=== PATIENT | female | born 1965 | race American Indian/Alaskan Native ===

== ENCOUNTER 2017-07-27 21:35 | Emergency (ER) | payer MEDICAID, OTHER ==
[2017-07-27 21:43] VITALS: BP 146/72
--- NOTE | 2017-07-27 21:54 | EDM.PDOC ---
ED HPI GENERAL MEDICAL PROBLEM - General Chief Complaint: Upper Extremity Injury/Pain Stated Complaint: BY AMBULANCE, INTOXICATION Time Seen by Provider: 07/27/17 21:38 Source of Information: Reports: Patient History Limitations: Reports: Intoxication - History of Present Illness INITIAL COMMENTS - FREE TEXT/NARRATIVE: This 52 yo female patient was brought to the ED by [facility] due to right shoulder pain. [facility] reports they found the patient wandering in the ditch complaining of right shoulder pain. The patient admits to drinking ETOH. The patient reports she was seen in the clinic today, but the provider did not do anything. The patient reports she had surgery on the shoulder 1 month ago and has been experiencing increased pain in her shoulder since that time. The patient reports she has not taken any pain medications at this time, but was drinking ETOH to reduce her pain. The patient reports she did get some insulin this afternoon. The patient denies any drug use. The patient reports she has not contacted the person that did surgery on her. Duration: Week(s):, Constant Location: Reports: Upper Extremity, Right Quality: Reports: Ache, Sharp Severity: Moderate Improves with: Reports: None Worsens with: Reports: None Associated Symptoms: Reports: No Other Symptoms Right Shoulder Pain Score (Numeric/FACES): 9 - Related Data Allergies Allergy/AdvReac Type Severity Reaction Status Date / Time hydrocodone Allergy Rash Verified 07/27/17 21:40 Home Meds: Home Meds Aspirin 81 mg PO BRK 03/17/16 [History] Insulin Aspart [NovoLOG] 100 unit SUBCUT BIDAC 03/17/16 [History] Insulin Detemir [Levemir] 25 unit SUBCUT BEDTIME 03/17/16 [History] Lisinopril 20 mg PO DAILY 03/17/16 [History] Simvastatin [Zocor] 20 mg PO BEDTIME 03/17/16 [History] Past Medical History Cardiovascular History: Reports: Hypertension Endocrine/Metabolic History: Reports: Diabetes, Type II - Past Surgical History Neurological Surgical History: Reports: Other (See Below) Musculoskeletal Surgical History: Reports: Knee Replacement Social & Family History - Family History Family Medical History: Noncontributory - Tobacco Use Smoking Status *Q: Current Every Day Smoker Years of Tobacco use: 40 Packs/Tins Daily: 1 - Recreational Drug Use Recreational Drug Use: No Review of Systems - Review of Systems Review Of Systems: ROS reveals no pertinent complaints other than HPI. ED EXAM, GENERAL - Physical Exam Exam: See Below Exam Limited By: Intoxication General Appearance: Alert, WD/WN, Moderate Distress, Obese Eye Exam: Bilateral Eye: EOMI, Normal Inspection, PERRL Ears: Normal External Exam, Normal Canal, Hearing Grossly Normal, Normal TMs Nose: Normal Inspection, Normal Mucosa, No Blood Throat/Mouth: Normal Inspection, Normal Lips, Normal Teeth, Normal Gums, Normal Oropharynx, Normal Voice, No Airway Compromise Head: Atraumatic, Normocephalic Neck: Normal Inspection, Supple, Non-Tender, Full Range of Motion Respiratory/Chest: No Respiratory Distress, Lungs Clear, Normal Breath Sounds, No Accessory Muscle Use, Chest Non-Tender Cardiovascular: Normal Peripheral Pulses, Regular Rate, Rhythm, No Edema, No Gallop, No JVD, No Murmur, No Rub GI/Abdominal: Normal Bowel Sounds, Soft, Non-Tender, No Organomegaly, No Distention, No Abnormal Bruit, No Mass (Female) Exam: Deferred Rectal (Female) Exam: Deferred Back Exam: Normal Inspection, Full Range of Motion, NT Extremities: Other (The patient has abrasions on her knees from falling. The patient reports anterior shoulder pain with palpation. ) Neurological: Alert, Oriented, CN II-XII Intact, Normal Cognition, Normal Gait, Normal Reflexes, No Motor/Sensory Deficits Psychiatric: Normal Affect, Normal Mood Skin Exam: Warm, Dry, Intact, Normal Color, No Rash Lymphatic: No Adenopathy Course - Vital Signs Last Recorded V/S: Last Vital Signs Temp 36.6 C 07/27/17 21:41 Pulse 83 07/27/17 21:41 Resp 20 07/27/17 21:41 BP 146/72 H 07/27/17 21:41 Pulse Ox 100 07/27/17 21:41 - Orders/Labs/Meds Labs: Laboratory Tests 07/27/17 07/27/17 07/27/17 Range/Units 21:50 21:50 22:01 WBC 9.3 (5.0-10.0) 10^3/uL RBC 5.03 (4.2-5.4) 10^6/uL Hgb 15.2 (12.0-16.0) g/dL Hct 44.9 (37.0-47.0) % MCV 89.3 (80-100) fL MCH 30.2 (27.0-34.0) pg MCHC 33.9 (33.0-35.0) g/dL Plt Count 217 (150-450) 10^3/uL Neut % (Auto) 92.4 H (42.2-75.2) % Lymph % (Auto) 6.5 L (20.5-50.1) % [place] % (Auto) 0.6 L (2-8) % Eos % (Auto) 0.0 L (1.0-3.0) % Baso % (Auto) 0.5 (0.0-1.0) % Sodium 137 (135-145) mmol/L Potassium 4.1 (3.6-5.0) mmol/L Chloride 103 (101-111) mmol/L Carbon Dioxide 17.0 L (21.0-31.0) mmol/L Anion Gap 21.1 BUN 15 (7-18) mg/dL Creatinine 0.6 (0.6-1.3) mg/dL Est Cr Clr Drug Dosing TNP Estimated GFR (MDRD) > 60 BUN/Creatinine Ratio 25.00 Glucose 430 H* (74-105) mg/dL Calcium 9.4 (8.4-10.2) mg/dl Magnesium 2.0 (1.8-2.5) mg/dL Total Bilirubin 0.7 (0.2-1.0) mg/dL AST 74 H (10-42) IU/L ALT 140 H (10-60) IU/L Alkaline Phosphatase 125 H (42-121) IU/L Total Protein 8.5 H (6.7-8.2) g/dl Albumin 4.4 (3.2-5.5) g/dl Globulin 4.1 Albumin/Globulin Ratio 1.07 Urine Color (YELLOW) Urine Appearance (CLEAR) Urine pH (5.0-9.0) Ur Specific [place] (1.005-1.030) Urine Protein (NEGATIVE) Urine Glucose (UA) (NEGATIVE) Urine Ketones (NEGATIVE) Urine Occult Blood (NEGATIVE) Urine Nitrite (NEGATIVE) Urine Bilirubin (NEGATIVE) Urine Urobilinogen (0.2-1.0) mg/dL Ur Leukocyte Esterase (NEGATIVE) Urine RBC /HPF Urine WBC (0-5/HPF) /HPF Ur Epithelial Cells /HPF Urine Bacteria (0-FEW/HPF) /HPF Urine HCG, Qual Salicylates < 4 Urine Opiates Screen Negative (NEGATIVE) Ur Oxycodone Screen Negative (NEGATIVE) Urine Methadone Screen Negative (NEGATIVE) Acetaminophen < 10 Ur Barbiturates Screen Negative (NEGATIVE) U Tricyclic Antidepress Negative (NEGATIVE) Ur Phencyclidine Scrn Negative (NEGATIVE) Ur Amphetamine Screen Negative (NEGATIVE) U Methamphetamines Scrn Negative (NEGATIVE) Urine MDMA Screen Negative (NEGATIVE) U Benzodiazepines Scrn Negative (NEGATIVE) Urine Cocaine Screen Negative (NEGATIVE) U Marijuana (THC) Screen Negative (NEGATIVE) Ethyl Alcohol 171 mg/dL 07/27/17 07/27/17 Range/Units 22:01 22:01 WBC (5.0-10.0) 10^3/uL RBC (4.2-5.4) 10^6/uL Hgb (12.0-16.0) g/dL Hct (37.0-47.0) % MCV (80-100) fL MCH (27.0-34.0) pg MCHC (33.0-35.0) g/dL Plt Count (150-450) 10^3/uL Neut % (Auto) (42.2-75.2) % Lymph % (Auto) (20.5-50.1) % [place] % (Auto) (2-8) % Eos % (Auto) (1.0-3.0) % Baso % (Auto) (0.0-1.0) % Sodium (135-145) mmol/L Potassium (3.6-5.0) mmol/L Chloride (101-111) mmol/L Carbon Dioxide (21.0-31.0) mmol/L Anion Gap BUN (7-18) mg/dL Creatinine (0.6-1.3) mg/dL Est Cr Clr Drug Dosing Estimated GFR (MDRD) BUN/Creatinine Ratio Glucose (74-105) mg/dL Calcium (8.4-10.2) mg/dl Magnesium (1.8-2.5) mg/dL Total Bilirubin (0.2-1.0) mg/dL AST (10-42) IU/L ALT (10-60) IU/L Alkaline Phosphatase (42-121) IU/L Total Protein (6.7-8.2) g/dl Albumin (3.2-5.5) g/dl Globulin Albumin/Globulin Ratio Urine Color Light yellow (YELLOW) Urine Appearance Slightly cloudy (CLEAR) Urine pH 5.5 (5.0-9.0) Ur Specific [place] <= 1.005 (1.005-1.030) Urine Protein Negative (NEGATIVE) Urine Glucose (UA) 500 H (NEGATIVE) Urine Ketones Negative (NEGATIVE) Urine Occult Blood Negative (NEGATIVE) Urine Nitrite Negative (NEGATIVE) Urine Bilirubin Negative (NEGATIVE) Urine Urobilinogen 0.2 (0.2-1.0) mg/dL Ur Leukocyte Esterase Negative (NEGATIVE) Urine RBC 0-5 /HPF Urine WBC 0-5 (0-5/HPF) /HPF Ur Epithelial Cells Few /HPF Urine Bacteria Few (0-FEW/HPF) /HPF Urine HCG, Qual Negative Salicylates Urine Opiates Screen (NEGATIVE) Ur Oxycodone Screen (NEGATIVE) Urine Methadone Screen (NEGATIVE) Acetaminophen Ur Barbiturates Screen (NEGATIVE) U Tricyclic Antidepress (NEGATIVE) Ur Phencyclidine Scrn (NEGATIVE) Ur Amphetamine Screen (NEGATIVE) U Methamphetamines Scrn (NEGATIVE) Urine MDMA Screen (NEGATIVE) U Benzodiazepines Scrn (NEGATIVE) Urine Cocaine Screen (NEGATIVE) U Marijuana (THC) Screen (NEGATIVE) Ethyl Alcohol mg/dL Meds: Medications Discontinued Medications Generic Name Dose Route Start Last Admin Trade Name Yarelis PRN Reason Stop Dose Admin Folic Acid Confirm 07/27/17 22:24 07/27/17 22:33 Folic Acid Administered 07/27/17 22:25 Not Given Dose 50 mg .ROUTE .STK-MED ONE Multivitamins/Minerals 10 ml/ 1,011.2 mls @ 999 mls/hr 07/27/17 22:20 22:32 Thiamine HCl 100 mg/ Folic IV 07/27/17 23:20 999 mls/hr Acid 1 mg/ Lactated Ringer's .BOLUS ONE Administration Ketorolac Tromethamine 30 mg 07/27/17 22:31 07/27/17 22:36 Toradol IVPUSH 07/27/17 22:32 30 mg ONETIME ONE Administration Multivitamins/Minerals Confirm 07/27/17 22:24 07/27/17 22:33 Infuvite Adult Administered 07/27/17 22:25 Not Given Dose 10 ml IV .STK-MED ONE Thiamine HCl Confirm 07/27/17 22:24 07/27/17 22:33 Vitamin B-1 Administered 07/27/17 22:25 Not Given Dose 200 mg .ROUTE .STK-MED ONE Departure - Departure Time of Disposition: 23:35 Disposition: Eloped 07 Condition: Fair Clinical Impression: Right shoulder pain Qualifiers: Chronicity: chronic Qualified Code(s): M25.511 - Pain in right shoulder - Discharge Information Instructions: Shoulder Pain, [id number] Forms: ED Department Discharge Care Plan Goals: While attempting to make arrangements for transportation, the patient left prior to discharge.
[2017-07-27 22:18] LABS: CHLORIDE,CL 103 mmol/L (101-111); SODIUM,NA 137 mmol/L (135-145)
[2017-07-27 22:20] LABS: ACETAMINOPHEN < 10
[2017-07-27] MEDS ORDERED: MVI, Adult with Vitamin K 10 ML, Thiamine 100 MG, Folic Acid 1 MG in Lactated Ringers 1... IV ONE ×4 (22:20)
[2017-07-27] MEDS ORDERED: Thiamine 200 MG/2 ML MDV ONE (22:24)
[2017-07-27] MEDS ORDERED: MVI, Adult with Vitamin K 10 ML SDV IV ONE (22:24)
[2017-07-27] MEDS ORDERED: Folic Acid 50 MG/10 ML MDV ONE (22:24)
[2017-07-27] MEDS ORDERED: Ketorolac 30 MG/ML SDV IVPUSH ONE (22:31)
== END 2017-07-27 23:30 | disposition left against medical advice (07) ==
LOC: DL.ED 21:35
DX: M25.511 Pain in right shoulder (principal); F17.210 Nicotine dependence, cigarettes, uncomplicated; E11.9 Type 2 diabetes mellitus without complications; I10 Essential (primary) hypertension; Z96.659 Presence of unspecified artificial knee joint; Z88.5 Allergy status to narcotic agent; Z79.82 Long term (current) use of aspirin; Z79.4 Long term (current) use of insulin; Z79.899 Other long term (current) drug therapy
CPT/HCPCS: 36415; 73030; 80053; 80305; 81001; 81025; 83735; 85025; 96360; 99283; G0480; J1885; J3411; J7120; J3490

== ENCOUNTER 2017-07-29 10:47 | Emergency (ER) | payer MEDICAID, OTHER ==
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
[2017-07-29] MEDS ORDERED: Sodium Chloride 0.9% 10 ML Syringe FLUSH PRN (10:59)
[2017-07-29] MEDS ORDERED: Ketorolac 30 MG/ML SDV IVPUSH ONE (11:14)
[2017-07-29 11:38] LABS: CHLORIDE,CL 100 mmol/L (101-111); SODIUM,NA 137 mmol/L (135-145)
[2017-07-29 12:41] VITALS: BP 154/75
[2017-07-29] MEDS ORDERED: fentaNYL 100 MCG/2 ML SDV IVPUSH ONE (13:53)
== END 2017-07-29 14:10 ==
LOC: DL.ED 10:47
DX: S72.141A Displaced intertrochanteric fracture of right femur, initial encounter for closed fracture (principal); I10 Essential (primary) hypertension; E11.9 Type 2 diabetes mellitus without complications; F17.210 Nicotine dependence, cigarettes, uncomplicated; Z96.659 Presence of unspecified artificial knee joint; Z79.4 Long term (current) use of insulin; Z79.82 Long term (current) use of aspirin; Z79.899 Other long term (current) drug therapy; Z88.5 Allergy status to narcotic agent; X58.XXXA Exposure to other specified factors, initial encounter
CPT/HCPCS: 36415; 70450; 72125; 72192; 80053; 80305; 81001; 82550; 82553; 82962; 85025; 96374; 96375; 99285; G0480; J1885; J3010; J7050

== ENCOUNTER 2019-05-01 00:25 | Emergency (ER) | payer MEDICAID, OTHER ==
--- NOTE | 2019-05-01 01:06 | EDM.PDOC ---
ED HPI GENERAL MEDICAL PROBLEM - General Chief Complaint: General Stated Complaint: AMBULANCE-UNKNOWN Time Seen by Provider: 05/01/19 00:35 Source of Information: Reports: Patient, EMS History Limitations: Reports: No Limitations - History of Present Illness INITIAL COMMENTS - FREE TEXT/NARRATIVE: ED with c/o burning with urination and "passing blood" in urine for one week. Noted burning and frequency to be worse tonight. Chronic low back and hip pain unchanged. States taking 3 aleve 2-3 times daily for pain. No vomiting or diarrhea, has not noticed any blood in stool . Spouse reported eating and drinking well today. Has felt like had fever at times over past 3 days. IDDM with blood sugars 300-400. Smoker. IV tracks noted, patient admits to meth use less than weekly, last use 3-4 days prior. Abdomen Pain Score (Numeric/FACES): 10 Right Hip Pain Score (Numeric/FACES): 8 Back Pain Score (Numeric/FACES): 8 - Related Data Allergies Allergy/AdvReac Type Severity Reaction Status Date / Time hydrocodone Allergy Rash Verified 05/01/19 00:59 Home Meds: Home Meds Aspirin 81 mg PO BRK 03/17/16 [History] Insulin Aspart [NovoLOG] 100 unit SUBCUT BIDAC 03/17/16 [History] Insulin Detemir [Levemir] 25 unit SUBCUT BEDTIME 03/17/16 [History] Lisinopril 20 mg PO DAILY 03/17/16 [History] Simvastatin [Zocor] 20 mg PO BEDTIME 03/17/16 [History] Naproxen Sodium [Aleve] 220 mg PO TID PRN 05/01/19 [History] Past Medical History Cardiovascular History: Reports: Hypertension Gastrointestinal History: Reports: Other (See Below) Other Gastrointestinal History: enlarged liver, elevalted enzymes Genitourinary History: Reports: Urinary Incontinence AIRPORT GUIDE History: Reports: Psychiatric History: Reports: Addiction Endocrine/Metabolic History: Reports: Diabetes, Type II - Past Surgical History Neurological Surgical History: Reports: Other (See Below) Musculoskeletal Surgical History: Reports: Knee Replacement Other Musculoskeletal Surgeries/Procedures:: Right hip surgery Social & Family History - Family History Family Medical History: Noncontributory - Tobacco Use Smoking Status *Q: Current Every Day Smoker Years of Tobacco use: 39 Packs/Tins Daily: 10 - Caffeine Use Caffeine Use: Reports: Coffee, Soda - Recreational Drug Use Recreational Drug Use: Yes Recreational Drug Type: Reports: Methamphetamine Recreational Drug Use Frequency: Socially ED ROS GENERAL - Review of Systems Review Of Systems: See Below Constitutional: Reports: Fever HEENT: Reports: No Symptoms Respiratory: Reports: No Symptoms Cardiovascular: Reports: No Symptoms Endocrine: Reports: High Glucose GI/Abdominal: Reports: Abdominal Pain, Other (abdomen feels bloated, last BM yesterday or today). Denies: Black Stool, Bloody Stool, Diarrhea, Vomiting : Reports: Dysuria, Frequency, Hematuria, Pain (suproapubic), Urgency Musculoskeletal: Reports: Shoulder Pain (right remote fracture), Joint Pain ( right hip, remote fracture) ED EXAM, GENERAL - Physical Exam Exam: See Below Exam Limited By: No Limitations General Appearance: Alert, Mild Distress, Thin Eye Exam: Bilateral Eye: EOMI Ears: Normal External Exam, Hearing Grossly Normal Nose: Normal Inspection Throat/Mouth: Normal Lips, Normal Voice, No Airway Compromise. No: Normal Teeth (poor dentation) Head: Atraumatic, Normocephalic Neck: Normal Inspection, Full Range of Motion Respiratory/Chest: No Respiratory Distress, Lungs Clear, Normal Breath Sounds Cardiovascular: Normal Peripheral Pulses, Regular Rate, Rhythm, No Edema. No: JVD GI/Abdominal: Normal Bowel Sounds, Soft, Tender (suprapubic). No: Distended, Guarding Extremities: Other (right hip pain with minimal movment). No: Joint Swelling Neurological: Alert, Oriented Psychiatric: Flat Affect, Other (irritable) Skin Exam: Warm, Dry, Normal Color Course - Vital Signs Last Recorded V/S: Last Vital Signs Temp 98 F 05/01/19 02:58 Pulse 83 05/01/19 02:58 Resp 19 05/01/19 02:58 BP 126/59 L 05/01/19 02:58 Pulse Ox 98 05/01/19 02:58 - Orders/Labs/Meds Orders: Active Orders 24 hr Category Date Time Status CULTURE BLOOD [BC] Stat Lab 05/01/19 00:32 Received CULTURE BLOOD [BC] Stat Lab 05/01/19 01:00 Received CULTURE URINE [RM] Stat Lab 05/01/19 00:51 Received Blood Culture x2 Reflex Set [OM.PC] Stat Oth 05/01/19 00:32 Ordered Labs: Laboratory Tests 05/01/19 05/01/19 05/01/19 Range/Units 00:39 00:39 00:51 WBC 9.9 (5.0-10.0) 10^3/uL RBC 4.44 (4.2-5.4) 10^6/uL Hgb 13.0 D (12.0-16.0) g/dL Hct 38.0 (37.0-47.0) % MCV 85.6 (80-100) fL MCH 29.3 (27.0-34.0) pg MCHC 34.2 (33.0-35.0) g/dL Plt Count 159 (150-450) 10^3/uL Neut % (Auto) 58.2 (42.2-75.2) % Lymph % (Auto) 25.6 (20.5-50.1) % Carter % (Auto) 8.4 H (2-8) % Eos % (Auto) 6.9 H (1.0-3.0) % Baso % (Auto) 0.9 (0.0-1.0) % Sodium (135-145) mmol/L Potassium (3.6-5.0) mmol/L Chloride (101-111) mmol/L Carbon Dioxide (21.0-31.0) mmol/L Anion Gap BUN (7-18) mg/dL Creatinine (0.6-1.3) mg/dL Est Cr Clr Drug Dosing Estimated GFR (MDRD) BUN/Creatinine Ratio Glucose (74-105) mg/dL Lactic Acid 1.0 (0.5-2.2) mmol/L Calcium (8.4-10.2) mg/dl Magnesium (1.8-2.5) mg/dL Total Bilirubin (0.2-1.0) mg/dL AST (10-42) IU/L ALT (10-60) IU/L Alkaline Phosphatase (42-121) IU/L Total Protein (6.7-8.2) g/dl Albumin (3.2-5.5) g/dl Globulin Albumin/Globulin Ratio Amylase (28-100) U/L Lipase (22-51) U/L Urine Color Red (YELLOW) Urine Appearance Cloudy (CLEAR) Urine pH 5.5 (5.0-9.0) Ur Specific [place] 1.025 (1.005-1.030) Urine Protein >=300 H (NEGATIVE) Urine Glucose (UA) 100 H (NEGATIVE) Urine Ketones Trace H (NEGATIVE) Urine Occult Blood Large H (NEGATIVE) Urine Nitrite Positive H (NEGATIVE) Urine Bilirubin Moderate H (NEGATIVE) Urine Urobilinogen 1.0 (0.2-1.0) mg/dL Ur Leukocyte Esterase Small H (NEGATIVE) Urine RBC >100 H /HPF Urine WBC >100 H (0-5/HPF) /HPF Ur Epithelial Cells Few (NOT SEEN) /HPF Other Crystals (NOT SEEN) /HPF Amorphous Sediment Moderate H (NOT SEEN) /HPF Urine Bacteria Few (0-FEW/HPF) /HPF Urine Opiates Screen (NEGATIVE) Ur Oxycodone Screen (NEGATIVE) Urine Methadone Screen (NEGATIVE) Ur Barbiturates Screen (NEGATIVE) U Tricyclic Antidepress (NEGATIVE) Ur Phencyclidine Scrn (NEGATIVE) Ur Amphetamine Screen (NEGATIVE) U Methamphetamines Scrn (NEGATIVE) Urine MDMA Screen (NEGATIVE) U Benzodiazepines Scrn (NEGATIVE) Urine Cocaine Screen (NEGATIVE) U Marijuana (THC) Screen (NEGATIVE) Ketones 05/01/19 05/01/19 Range/Units 00:51 01:00 WBC (5.0-10.0) 10^3/uL RBC (4.2-5.4) 10^6/uL Hgb (12.0-16.0) g/dL Hct (37.0-47.0) % MCV (80-100) fL MCH (27.0-34.0) pg MCHC (33.0-35.0) g/dL Plt Count (150-450) 10^3/uL Neut % (Auto) (42.2-75.2) % Lymph % (Auto) (20.5-50.1) % Carter % (Auto) (2-8) % Eos % (Auto) (1.0-3.0) % Baso % (Auto) (0.0-1.0) % Sodium 139 (135-145) mmol/L Potassium 4.2 (3.6-5.0) mmol/L Chloride 107 (101-111) mmol/L Carbon Dioxide 22.0 (21.0-31.0) mmol/L Anion Gap 14.2 BUN 26 H (7-18) mg/dL Creatinine 0.7 (0.6-1.3) mg/dL Est Cr Clr Drug Dosing TNP Estimated GFR (MDRD) > 60 BUN/Creatinine Ratio 37.14 Glucose 160 H (74-105) mg/dL Lactic Acid (0.5-2.2) mmol/L Calcium 9.2 (8.4-10.2) mg/dl Magnesium 2.0 (1.8-2.5) mg/dL Total Bilirubin 0.6 (0.2-1.0) mg/dL AST 27 (10-42) IU/L ALT 46 (10-60) IU/L Alkaline Phosphatase 101 (42-121) IU/L Total Protein 7.2 (6.7-8.2) g/dl Albumin 3.7 (3.2-5.5) g/dl Globulin 3.5 Albumin/Globulin Ratio 1.06 Amylase 59 (28-100) U/L Lipase 53 H (22-51) U/L Urine Color (YELLOW) Urine Appearance (CLEAR) Urine pH (5.0-9.0) Ur Specific [place] (1.005-1.030) Urine Protein (NEGATIVE) Urine Glucose (UA) (NEGATIVE) Urine Ketones (NEGATIVE) Urine Occult Blood (NEGATIVE) Urine Nitrite (NEGATIVE) Urine Bilirubin (NEGATIVE) Urine Urobilinogen (0.2-1.0) mg/dL Ur Leukocyte Esterase (NEGATIVE) Urine RBC /HPF Urine WBC (0-5/HPF) /HPF Ur Epithelial Cells (NOT SEEN) /HPF Other Crystals (NOT SEEN) /HPF Amorphous Sediment (NOT SEEN) /HPF Urine Bacteria (0-FEW/HPF) /HPF Urine Opiates Screen Negative (NEGATIVE) Ur Oxycodone Screen Negative (NEGATIVE) Urine Methadone Screen Negative (NEGATIVE) Ur Barbiturates Screen Negative (NEGATIVE) U Tricyclic Antidepress Negative (NEGATIVE) Ur Phencyclidine Scrn Negative (NEGATIVE) Ur Amphetamine Screen Positive H (NEGATIVE) U Methamphetamines Scrn Positive H (NEGATIVE) Urine MDMA Screen Negative (NEGATIVE) U Benzodiazepines Scrn Negative (NEGATIVE) Urine Cocaine Screen Negative (NEGATIVE) U Marijuana (THC) Screen Positive H (NEGATIVE) Ketones Negative Meds: Medications Discontinued Medications Generic Name Dose Route Start Last Admin Trade Name Freq PRN Reason Stop Dose Admin Fentanyl 50 mcg 05/01/19 01:33 05/01/19 01:39 Sublimaze IVPUSH 05/01/19 01:34 50 mcg ONETIME ONE Administration Levofloxacin/Dextrose 750 mg/ 150 mls @ 100 mls/hr 05/01/19 01:21 05/01/19 01 :34 Premix IV 05/01/19 02:50 100 mls/hr ONETIME ONE Administration Sodium Chloride 1,000 mls @ 500 mls/hr 05/01/19 01:32 05/01/19 01:37 Normal Saline IV 05/01/19 03:31 500 mls/hr .BOLUS ONE Administration Iopamidol 75 ml 05/01/19 01:32 05/01/19 02:15 Isovue-300 (61%) IVPUSH 05/01/19 01:33 75 ml ONETIME ONE Administration Departure - Departure Time of Disposition: 03:33 Disposition: Home, Self-Care 01 Condition: Good Clinical Impression: Right hip pain, Methamphetamine abuse, IVDU (intravenous drug user) UTI (urinary tract infection) Qualifiers: Urinary tract infection type: acute cystitis Hematuria presence: with hematuria Qualified Code(s): N30.01 - Acute cystitis with hematuria - Discharge Information *PRESCRIPTION DRUG MONITORING PROGRAM REVIEWED*: No *COPY OF PRESCRIPTION DRUG MONITORING REPORT IN PATIENT ALEYDA: No Instructions: Urinary Tract Infection, Adult, [id number] Forms: ED Department Discharge Additional Instructions: levaquin 500mg daily x 6 increase fluids decrease use of aleve tylenol 650mg every 4 hours as needed for hip pain follow up in clinic next week - My Orders Last 24 Hours: My Active Orders 05/01/19 00:32 CULTURE BLOOD [BC] Stat Blood Culture x2 Reflex Set [OM.PC] Stat 05/01/19 00:51 CULTURE URINE [RM] Stat 05/01/19 01:00 CULTURE BLOOD [BC] Stat - Assessment/Plan Last 24 Hours: My Active Orders 05/01/19 00:32 CULTURE BLOOD [BC] Stat Blood Culture x2 Reflex Set [OM.PC] Stat 05/01/19 00:51 CULTURE URINE [RM] Stat 05/01/19 01:00 CULTURE BLOOD [BC] Stat
[2019-05-01] MEDS ORDERED: Levofloxacin/Dextrose 5%-Water 750 MG in Premix Bag 1 BAG IV ONE (01:21)
[2019-05-01 01:22] LABS: ANION GAP 14.2; CHLORIDE,CL 107 mmol/L (101-111); SODIUM,NA 139 mmol/L (135-145)
[2019-05-01] MEDS ORDERED: Sodium Chloride 0.9% 1,000 ML IV ONE (01:32)
[2019-05-01] MEDS ORDERED: Iopamidol 612 MG/ML 75 ML Bottle IVPUSH ONE (01:32)
[2019-05-01] MEDS ORDERED: fentaNYL 100 MCG/2 ML SDV IVPUSH ONE (01:33)
[2019-05-01 02:58] VITALS: BP 126/59; PULSE 83
== END 2019-05-01 04:02 | disposition home or self-care (01) ==
LOC: DL.ED 00:25
DX: N30.01 Acute cystitis with hematuria (principal); M25.551 Pain in right hip; I10 Essential (primary) hypertension; E11.9 Type 2 diabetes mellitus without complications; F17.210 Nicotine dependence, cigarettes, uncomplicated; F15.10 Other stimulant abuse, uncomplicated; F19.10 Other psychoactive substance abuse, uncomplicated; Z88.5 Allergy status to narcotic agent; Z79.899 Other long term (current) drug therapy; Z79.4 Long term (current) use of insulin; Z79.82 Long term (current) use of aspirin
CPT/HCPCS: 36415; 74177; 80053; 80305; 81001; 82009; 82150; 82272; 83605; 83690; 83735; 85025; 87040; 87086; 87088; 87186; 96365; 96366; 96375; 99284; A4217; J1956; J3010; J7030; Q9967